=== PATIENT | female | born 1990 | race Caucasian/White ===

== ENCOUNTER 2019-07-05 06:31 | Emergency (ER) | payer OTHER ==
[~2019-07-05] VITALS: Ht 162.6 cm; Wt 85.7 kg
[2019-07-05 06:57] VITALS: Ht 162.6 cm; Wt 85.7 kg
[2019-07-05 08:52] VITALS: BP 121/76
== END 2019-07-05 09:02 | disposition home or self-care (01) ==
LOC: ED 06:31
DX: K29.70 Gastritis, unspecified, without bleeding (principal)